=== PATIENT | female | born 1990 | race Hispanic/Latino ===

== ENCOUNTER 2023-05-29 22:50 | Emergency (ER) | payer OTHER, SELFPAY ==
[2023-05-29] MEDS ORDERED: Lidocaine 1% w/Epinephrine 1:100K 20 ML VIAL ONE (23:52)
[2023-05-30] MEDS ORDERED: Bacitracin 1 PK ONE (00:52)
== END 2023-05-30 00:55 | disposition home or self-care (01) ==
LOC: ERS 22:50
DX: S91.012A Laceration without foreign body, left ankle, initial encounter (principal); W26.8XXA Contact with other sharp object(s), not elsewhere classified, initial encounter; Y99.0 Civilian activity done for income or pay
CPT/HCPCS: 12001